=== PATIENT | female | born 1975 | race Two or more races ===

== ENCOUNTER → 2016-04-24 | Outpatient (CLI) | payer OTHER ==
--- NOTE | 2016-04-24 11:07 | MR ---
EXAMINATION TYPE: MR knee RT wo con DATE OF EXAM: 04/24/2016 10:55 AM COMPARISON: 01/08/2012 HISTORY: Rt knee pain TECHNIQUE: Multiplanar, multisequence imaging of the right knee is performed without IV contrast. FINDINGS: MEDIAL MENISCUS: Anterior and posterior horns are intact without tear. Myxoid degeneration posterior horn medial meniscus. LATERAL MENISCUS: Anterior and posterior horns are intact without tear. CRUCIATE LIGAMENTS: Chronic partial tear ACL. ACL is intact. COLLATERAL LIGAMENTS: The medial collateral ligament and lateral collateral ligament complex are inta ct and unremarkable. EXTENSOR MECHANISM: Visualized quadriceps and patellar tendons are intact. EFFUSION: No significant suprapatellar joint effusion. POPLITEAL CYST: Stable Kim's cyst. TRICOMPARTMENT SPACES: Degenerative narrowing patellofemoral joint space with early changes of chondr omalacia patella. BONE MARROW SIGNAL: No focal abnormal marrow signal is appreciated. OTHER: No additional significant abnormality is appreciated. IMPRESSION: 1. Chronic partial ACL tear. 2. 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 3. Changes of chondromalacia patella.
== END | disposition home or self-care (01) ==
LOC: RADMRIMAIN 10:21
PROVIDERS: ATTEND Orthopaedic Surgery
DX: M23.221 Derangement of posterior horn of medial meniscus due to old tear or injury, right knee (principal); M23.8X1 Other internal derangements of right knee; M22.41 Chondromalacia patellae, right knee

== ENCOUNTER → 2016-10-20 | Outpatient (CLI) | payer OTHER ==
--- NOTE | 2016-10-20 09:34 | CT ---
EXAMINATION TYPE: CT brain wo con DATE OF EXAM: 10/20/2016 COMPARISON: NONE HISTORY: Patient complains of episodes of memory loss, headache, and slurred speech. CT DLP: 1082 mGycm. Automated Exposure Control for Dose Reduction was Utilized. TECHNIQUE: CT scan of the head is performed without contrast. FINDINGS: There is no acute intracranial hemorrhage, mass effect, or midline shift identified. The ventricles and sulci are within normal limits in size. The globes are intact and the visualized sin uses are clear. IMPRESSION: No acute intracranial hemorrhage, mass effect, or midline shift is seen. The exam is unc hanged from the prior with no CT findings to correlate with the patient's symptoms.
--- NOTE | 2016-10-20 10:07 | US ---
EXAMINATION TYPE: US kidneys/renal and bladder DATE OF EXAM: 10/20/2016 COMPARISON: NONE CLINICAL HISTORY: N23 kidney pain. Flank pain and provided history of renal infections. EXAM MEASUREMENTS: Right Kidney: 11.9 x 5.0 x 5.1 cm Left Kidney: 11.8 x 5.5 x 5.2 cm Right Kidney: No hydronephrosis or discrete mass. Left Kidney: No hydronephrosis or discrete mass. Bladder: wnl Bilateral Jets seen: No There is no evidence for hydronephrosis at this point in time. No nephrolithiasis is seen. No ranjit s are identified. The urinary bladder is anechoic. Bilateral ureteral jets are seen. IMPRESSION: No evidence of hydronephrosis. Unremarkable renal ultrasound.
== END | disposition home or self-care (01) ==
LOC: RADUSMAIN 09:08
PROVIDERS: ATTEND Family Medicine
DX: R51 Headache (principal); N23 Unspecified renal colic
CPT/HCPCS: 70450; 76770

== ENCOUNTER 2017-07-23 10:14 | Day surgery (SDC) | payer OTHER ==
[2017-07-20 14:50] VITALS: BMI 32.3
[~2017-07-23 10:14] MED LIST: LACTATED RINGERS 1,000 ML IV SCH
[2017-07-23 10:48] VITALS: TEMP 97.6
[2017-07-23] MEDS ORDERED: LIDOCAINE 1% 20 ML VIAL (10MG/ML) FOR IV START INTRADERMA ONE (10:50)
[2017-07-23] MEDS ORDERED: PROPOFOL 10 MG/ML 20 ML VIAL IV ONE (11:14)
[2017-07-23] MEDS ORDERED: MIDAZOLAM 2 MG/2 ML VIAL ONE (11:14)
[2017-07-23] MEDS ORDERED: fentaNYL (PF) 50 MCG/ML 2 ML AMP ONE (11:14)
--- NOTE | 2017-07-23 11:27 | P.PCN ---
Date of Procedure: 07/23/17 Procedure(s) Performed: BRIEF HISTORY: Patient is a 42-year-old, pleasant, white female, scheduled for an upper endoscopy as a part of evaluation of intermittent dysphagia, heartburn , throat irritation for the last several months duration.. PROCEDURE PERFORMED: Esophagogastroduodenoscopy with biopsy. PREOPERATIVE DIAGNOSIS: Intermittent dysphagia to solids, throat pain, epigastric pain and heartburn. IV sedation per anesthesia. PROCEDURE: After informed consent was obtained, the patient was brought into the endoscopy unit. IV sedation was administered by Anesthesia under continuous monitoring. Initially the Olympus GIF-140 video endoscope was inserted into the mouth. Esophagus intubated without any difficulty. It was gradually advanced into the stomach and duodenum and carefully examined. The bulb and the second part of the duodenum appeared normal. The scope at this time was withdrawn to the stomach, adequately insufflated with air, and upon careful examination, mucosa of the antrum, body, had diffuse severe gastritis and multiple biopsies for H. pylori were done. The cardia and the fundus appeared normal. The scope was then withdrawn into the esophagus. The GE junction was located at 39 cm from the incisors. The esophagus appeared normal. There were no erosions or ulcerations seen and the patient tolerated the procedure well. IMPRESSION: 1. Diffuse gastritis more predominant in the antrum and distal body of the stomach status post multiple biopsies. 2. Normal-appearing esophagus with no evidence of esophagitis or esophageal stricture. RECOMMENDATIONS: The findings of this examination were discussed with the patient is a family. She was advised to follow with the biopsy results. She' ll be given a trial of Prilosec 20 mg daily to be taken in the morning before breakfast.
[2017-07-23 11:44] VITALS: BP 135/86; PULSE 69; RESP 18
== END 2017-07-23 12:30 | disposition home or self-care (01) ==
LOC: ORWHC2ENDO 10:14
PROVIDERS: ATTEND Internal Medicine Gastroenterology
DX: K29.50 Unspecified chronic gastritis without bleeding (principal); B96.81 Helicobacter pylori [H. pylori] as the cause of diseases classified elsewhere; K21.0 Gastro-esophageal reflux disease with esophagitis; F39 Unspecified mood [affective] disorder; M19.90 Unspecified osteoarthritis, unspecified site; Z72.0 Tobacco use; Z79.891 Long term (current) use of opiate analgesic; Z79.899 Other long term (current) drug therapy; Z88.1 Allergy status to other antibiotic agents
CPT/HCPCS: 81025; 88305; 43239; J2250; J3010; J2704

== ENCOUNTER → 2018-01-18 | Outpatient (CLI) | payer OTHER ==
--- NOTE | 2018-01-18 09:56 | US ---
EXAMINATION TYPE: US abdomen complete DATE OF EXAM: 01/18/2018 COMPARISON: NONE CLINICAL HISTORY: K21.9 GERD R10.9 Abdominal pain. abd pain after eating EXAM MEASUREMENTS: Liver Length: 14.6 cm Gallbladder Wall: 0.2 cm CBD: 0.6 cm Spleen: 9.7 cm Right Kidney: 11.7 x 4.3 x 4.8 cm Left Kidney: 10.8 x 5.1 x 5.9 cm Pancreas: wnl Liver: 2.3cm hypoechoic area may represent focal fatty sparring Gallbladder: wnl Evidence for sonographic Block's sign: no CBD: wnl Spleen: wnl Right Kidney: wnl Left Kidney: wnl Upper IVC: wnl Abd Aorta: wnl The intrahepatic portion of the IVC and proximal abdominal aorta are within normal limits. There is no evidence of cholelithiasis. Common bile duct is unremarkable. The visualized portions of the pa ncreas are homogenous. The spleen is unremarkable. Kidneys are symmetric and free of hydronephrosis . No renal lesions are seen. IMPRESSION: 1. Hepatic steatosis with focal fatty sparing noted.
== END | disposition home or self-care (01) ==
LOC: RADUSWWP 07:18
PROVIDERS: ATTEND Family Medicine
DX: K76.0 Fatty (change of) liver, not elsewhere classified (principal); K21.9 Gastro-esophageal reflux disease without esophagitis
CPT/HCPCS: 76700

== ENCOUNTER → 2018-10-22 | Outpatient (CLI) | payer OTHER ==
[2018-10-22 19:09] LABS: T4, Free (Free Thyroxine) 0.8 ng/dL (0.80-1.80)
== END | disposition home or self-care (01) ==
LOC: LABWHC1 10:51
PROVIDERS: ATTEND Nurse Practitioner Family
DX: G62.9 Polyneuropathy, unspecified (principal)
CPT/HCPCS: 36415; 82607; 84439; 84443; 84481

== ENCOUNTER → 2018-12-31 | Outpatient (CLI) | payer OTHER ==
[2018-12-31 19:04] LABS: Anti-Smith Ab Interp NEGATIVE (NEGATIVE); Cyclic Citrullinated Pep IgG NEGATIVE (NEGATIVE); DNA Double-Stranded NEGATIVE (NEGATIVE); Scleroderma SC-70 Ab <0.2 AI
== END | disposition home or self-care (01) ==
LOC: LABWHC1 11:27
PROVIDERS: ATTEND Nurse Practitioner Family
DX: M25.50 Pain in unspecified joint (principal)
CPT/HCPCS: 36415; 83516; 86038; 86200; 86225; 86235

== ENCOUNTER → 2019-01-03 | Outpatient (CLI) | payer OTHER ==
--- NOTE | 2019-01-04 13:56 | MM ---
Reason for exam: screening (asymptomatic). Last mammogram was performed 6 years and 11 months ago. History: Family history of breast cancer in maternal grandmother. Physical Findings: A clinical breast exam by your physician is recommended on an annual basis and results should be correlated with mammographic findings. MG Screening Mammo w CAD Bilateral CC and MLO view(s) were taken. Prior study comparison: January 22, 2012, bilateral digital screening mammo w/CAD. The breast tissue is heterogeneously dense. This may lower the sensitivity of mammography. No significant changes when compared with prior studies. ASSESSMENT: Incomplete: need additional imaging evaluation, BI-RAD 0 RECOMMENDATION: Ultrasound of the left breast. (palpable) [facility] will attempt to contact patient to return for ultrasound.
== END | disposition home or self-care (01) ==
LOC: RADMAMWWP 13:52
PROVIDERS: ATTEND Family Medicine
DX: Z12.31 Encounter for screening mammogram for malignant neoplasm of breast (principal)
CPT/HCPCS: 77067

== ENCOUNTER → 2019-01-13 | Outpatient (CLI) | payer OTHER ==
--- NOTE | 2019-01-13 09:35 | USB ---
Reason for exam: additional evaluation requested from abnormal screening. History: Family history of breast cancer in maternal grandmother. Physical Findings: Nurse did not find any significant physical abnormalities on exam. US Breast Workup Limited LT Left complete breast ultrasound includes all four quadrants, the retroareolar region and axilla. Finding demonstrates a 0.8 x 0.5 x 0.7cm mixed lesion at 1 o'clock, a 0.4 x 0.5 x 0.5cm cystic lesion at 1 o'clock and a 0.8 x 0.3 x 1.0cm lesion at the axilla tail. These results were verbally communicated with the patient and result sheet given to the patient on 01/13/19. ASSESSMENT: Probably benign, BI-RAD 3 RECOMMENDATION: Ultrasound of the left breast in 6 months.
== END | disposition home or self-care (01) ==
LOC: RADUSWWP 08:28
PROVIDERS: ATTEND Family Medicine
DX: R92.8 Other abnormal and inconclusive findings on diagnostic imaging of breast (principal)

== ENCOUNTER → 2019-04-12 | Outpatient (CLI) | payer OTHER ==
--- NOTE | 2019-04-12 20:23 | CONS ---
CONSULTATION REASON FOR CONSULTATION: Increased fatigue and sleepiness. This is a 43-year-old female patient who is coming with symptoms of loud snoring, witnessed apneas, waking up gasping for air. 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 The patient also has hypertension, well treated for now. She has gained about 40 pounds over the past one year. She has snoring with stopped breathing at night and at times she has episodes of sleep paralysis and she is able to remember some of the dreams that she is experiencing throughout the night. She is a bit anxious and panicky. No restlessness in the lower extremities. No hallucinations. No cataplexy noted. She goes to bed between 1 and 2 a.m. and she gets out of bed between 6 and 7 a.m. in the morning and she is somewhat sleep-deprived. She wakes up tired and is having issues with concentration and memory during the day. PAST MEDICAL HISTORY: HAZARDOUS MATERIALS HANDLER aneurysm, hypertension and migraines. SURGICAL HISTORY: Includes endometrial ablation. DRUG ALLERGIES: MACROBID. OUTPATIENT MEDICATION: Losartan 100, omeprazole 40, Xanax on an as-needed basis and Motrin 800 on a p.r.n. basis. FAMILY HISTORY: Negative for obstructive sleep apnea. REVIEW OF SYSTEMS: Fourteen-point review of systems was done. Positive findings were all mentioned above in the history of present illness. PHYSICAL EXAMINATION: VITAL SIGNS: BP is 120/77, pulse rate 86, respirations 16, temperature 97.9, saturation 98% on room air. Height is 5 feet 0 inches. Weight is 182. Neck size 15 inches. GENERAL APPEARANCE: Calm, comfortable. HEAD: Atraumatic, normocephalic. NECK: Supple. No JVD. No goiter or neck masses. Mallampati class IV. LUNGS: Clear to auscultation. HEART: Heart sounds are regular rate and rhythm. Normal S1, S2. No S3, S4. No murmurs. ABDOMEN: Soft, nontender. No organomegaly. EXTREMITIES: No edema. No cyanosis or clubbing. NEUROLOGIC: Awake and alert. No focal neurological deficits. IMPRESSION: 1. Chronic fatigue and hypersomnia, currently under investigation. Rule out obstructive sleep apnea. The patient is having some sleep paralysis and vivid dreams. Doubt narcolepsy at this point in time; the presentation is more typical of sleep apnea. 2. Hypertension. 3. Migraines. 4. HAZARDOUS MATERIALS HANDLER aneurysm. PLAN: 1. Weight loss. 2. Polysomnogram for screening for sleep apnea. If negative, will proceed with a second-day MSLT. 3. Extend sleep hours, as the patient has a component of insufficient sleep syndrome. I recommended sleeping at least 6-7 hours per night. 4. Will continue to follow. MMODL / IJN: [id number] /
== END | disposition home or self-care (01) ==
LOC: SLEEP 16:44
PROVIDERS: ATTEND Internal Medicine Critical Care Medicine
DX: G47.10 Hypersomnia, unspecified (principal); I10 Essential (primary) hypertension; G43.909 Migraine, unspecified, not intractable, without status migrainosus; I72.8 Aneurysm of other specified arteries; G83.89 Other specified paralytic syndromes; R53.82 Chronic fatigue, unspecified; Z79.1 Long term (current) use of non-steroidal anti-inflammatories (NSAID); Z79.899 Other long term (current) drug therapy; Z88.1 Allergy status to other antibiotic agents
CPT/HCPCS: 99211

== ENCOUNTER 2019-11-09 21:25 | Emergency (ER) | payer OTHER ==
--- NOTE | 2019-11-09 22:16 | ED ---
General Adult HPI - General Chief complaint: Headache Stated complaint: Hypertension Time Seen by Provider: 11/09/19 22:00 Source: patient Mode of arrival: wheelchair Limitations: no limitations - History of Present Illness -: hour(s) Location: head, abdomen Radiation: non-radiation Quality: aching Consistency: constant Improves with: none Worsens with: none Associated Symptoms: denies other symptoms - Related Data Home Medications Medication Instructions Recorded Confirmed ALPRAZolam [Xanax] 0.5 - 1 mg PO Q8HR PRN 07/20/17 11/09/19 Acetaminophen [Tylenol] 500 - 1,000 mg PO Q8H PRN 11/09/19 11/09/19 Losartan/Hydrochlorothiazide 1 tab PO DAILY 11/09/19 11/09/19 [Losartan-Hctz 100-12.5 mg Tab] Omeprazole 20 mg PO BID 11/09/19 11/09/19 Previous Rx's Medication Instructions Recorded cloNIDine HCL [Catapres] 0.2 mg PO Q8H PRN #15 tablet 11/10/19 Allergies Allergy/AdvReac Type Severity Reaction Status Date / Time nitrofurantoin Allergy Anaphylaxis Verified 11/09/19 22:49 [From Nallatechbid] Review of Systems ROS Statement: Those systems with pertinent positive or pertinent negative responses have been documented in the HPI. ROS Other: All systems not noted in ROS Statement are negative. Past Medical History Past Medical History: Hypertension, Neurologic Disorder Additional Past Medical History / Comment(s): HAS BEEN HAVING EPISODES OF FOOD STICKING IN THROAT. HX MIGRAINES. HAS B/P MEDS BUT DOES NOT TAKE THEM History of Any Multi-Drug Resistant Organisms: None Reported Past Surgical History: Tubal Ligation, Uterine Ablation Past Anesthesia/Blood Transfusion Reactions: No Reported Reaction Past Psychological History: Anxiety, Panic Disorder Smoking Status: Former smoker Past Alcohol Use History: Occasional Past Drug Use History: None Reported - Past Family History Mother Family Medical History: No Reported History General Exam Limitations: no limitations Course Vital Signs 11/09/19 11/09/19 11/09/19 21:27 22:07 22:59 Temperature 98.2 F Pulse Rate 89 73 Respiratory 20 18 16 Rate Blood Pressure 178/97 186/116 130/86 O2 Sat by Pulse 98 98 99 Oximetry 11/09/19 11/09/19 23:15 23:43 Temperature Pulse Rate 85 81 Respiratory 16 16 Rate Blood Pressure 118/72 113/73 O2 Sat by Pulse 98 97 Oximetry Medical Decision Making - Medical Decision Making This patient is a 44-year-old woman presenting with hypertension and a headache that she states is typical of her headaches. She is feeling better following medication here. We did have fairly detailed bedside discussion regarding her blood pressure and there is question of whether patient is having element of sleep apnea. She is encouraged to follow up for sleep study. The patient does have pre-existing appointment with cardiology and will discuss her blood pressure there. She also has appointment to have ultrasound related to the elevated transaminases levels which had been previously found as well. Discussed return parameters as well as further follow-up and care. - Lab Data Result diagrams: 11/09/19 22:26 11/09/19 22:26 Lab Results 11/09/19 11/09/19 11/09/19 Range/Units 22:26 22:26 22:26 WBC 13.5 H (3.8-10.6) k/uL RBC 4.79 (3.80-5.40) m/uL Hgb 13.2 (11.4-16.0) gm/dL Hct 40.3 (34.0-46.0) % MCV 84.1 (80.0-100.0) fL MCH 27.6 (25.0-35.0) pg MCHC 32.8 (31.0-37.0) g/dL RDW 12.3 (11.5-15.5) % Plt Count 291 (150-450) k/uL Neutrophils % 60 % Lymphocytes % 31 % Monocytes % 5 % Eosinophils % 3 % Basophils % 1 % Neutrophils # 8.0 H (1.3-7.7) k/uL Lymphocytes # 4.2 (1.0-4.8) k/uL Monocytes # 0.6 (0-1.0) k/uL Eosinophils # 0.4 (0-0.7) k/uL Basophils # 0.1 (0-0.2) k/uL Sodium 137 (137-145) mmol/L Potassium 3.9 (3.5-5.1) mmol/L Chloride 103 (98-107) mmol/L Carbon Dioxide 24 (22-30) mmol/L Anion Gap 10 mmol/L BUN 13 (7-17) mg/dL Creatinine 0.62 (0.52-1.04) mg/dL Est GFR (CKD-EPI)AfAm >90 (>60 ml/min/1.73 sqM) Est GFR (CKD-EPI)NonAf >90 (>60 ml/min/1.73 sqM) Glucose 95 (74-99) mg/dL Calcium 9.9 (8.4-10.2) mg/dL Magnesium 2.1 (1.6-2.3) mg/dL Total Bilirubin 0.4 (0.2-1.3) mg/dL AST 126 H (14-36) U/L ALT 193 H (4-34) U/L Alkaline Phosphatase 109 (38-126) U/L Troponin I <0.012 (0.000-0.034) ng/mL NT-Pro-B Natriuret Pep pg/mL Total Protein 7.9 (6.3-8.2) g/dL Albumin 4.8 (3.5-5.0) g/dL 11/09/19 Range/Units 22:26 WBC (3.8-10.6) k/uL RBC (3.80-5.40) m/uL Hgb (11.4-16.0) gm/dL Hct (34.0-46.0) % MCV (80.0-100.0) fL MCH (25.0-35.0) pg MCHC (31.0-37.0) g/dL RDW (11.5-15.5) % Plt Count (150-450) k/uL Neutrophils % % Lymphocytes % % Monocytes % % Eosinophils % % Basophils % % Neutrophils # (1.3-7.7) k/uL Lymphocytes # (1.0-4.8) k/uL Monocytes # (0-1.0) k/uL Eosinophils # (0-0.7) k/uL Basophils # (0-0.2) k/uL Sodium (137-145) mmol/L Potassium (3.5-5.1) mmol/L Chloride (98-107) mmol/L Carbon Dioxide (22-30) mmol/L Anion Gap mmol/L BUN (7-17) mg/dL Creatinine (0.52-1.04) mg/dL Est GFR (CKD-EPI)AfAm (>60 ml/min/1.73 sqM) Est GFR (CKD-EPI)NonAf (>60 ml/min/1.73 sqM) Glucose (74-99) mg/dL Calcium (8.4-10.2) mg/dL Magnesium (1.6-2.3) mg/dL Total Bilirubin (0.2-1.3) mg/dL AST (14-36) U/L ALT (4-34) U/L Alkaline Phosphatase (38-126) U/L Troponin I (0.000-0.034) ng/mL NT-Pro-B Natriuret Pep 48 pg/mL Total Protein (6.3-8.2) g/dL Albumin (3.5-5.0) g/dL - EKG Data -: EKG Interpreted by Me EKG shows normal: sinus rhythm, axis (normal), intervals (normal), QRS complexes (normal), ST-T waves (normal) Rate: normal (Rate 78 bpm) Disposition Clinical Impression: Hypertension, Elevated transaminase level Disposition: HOME SELF-CARE Condition: Good Instructions (If sedation given, give patient instructions): Hypertension (ED) Additional Instructions: As we discussed, follow with your physician to see about having a sleep study Prescriptions: cloNIDine HCL [Catapres] 0.2 mg PO Q8H PRN #15 tablet PRN Reason: Hypertension Is patient prescribed a controlled substance at d/c from ED?: No Referrals: Charles Salvador DO [Primary Care Provider] - 1-2 days
[2019-11-09] MEDS ORDERED: LORazepam 2 MG/ML INJ IV STA (22:19)
[2019-11-09 22:37] LABS: Basophils # (A) 0.1 k/uL (0-0.2); Basophils % (A) 1 %; Eosinophils # (A) 0.4 k/uL (0-0.7); Eosinophils % (A) 3 %; HCT 40.3 % (34.0-46.0); HGB 13.2 gm/dL (11.4-16.0); Lymphocytes # (A) 4.2 k/uL (1.0-4.8); Lymphocytes % (A) 31 %; MCH 27.6 pg (25.0-35.0); MCHC 32.8 g/dL (31.0-37.0); MCV 84.1 fL (80.0-100.0); Mean Platelet Volume 6.8; Monocytes # (A) 0.6 k/uL (0-1.0); Monocytes % (A) 5 %; Neutrophils % (A) 60 %; Platelet Count 291 k/uL (150-450); RBC 4.79 m/uL (3.80-5.40); RDW 12.3 % (11.5-15.5); WBC 13.5 k/uL (3.8-10.6)
[2019-11-09 22:45] LABS: ALT 193 U/L (4-34); AST 126 U/L (14-36); African American GFR (CKD) >90 (>60 ml/min/1.73 sqM); Albumin 4.8 g/dL (3.5-5.0); Alkaline Phosphatase 109 U/L (38-126); Anion Gap 10 mmol/L; Blood Urea Nitrogen 13 mg/dL (7-17); Calcium 9.9 mg/dL (8.4-10.2); Carbon Dioxide 24 mmol/L (22-30); Chloride 103 mmol/L (98-107); Glucose 95 mg/dL (74-99); Magnesium 2.1 mg/dL (1.6-2.3); Non-African American GFR(CKD) >90 (>60 ml/min/1.73 sqM); Potassium 3.9 mmol/L (3.5-5.1); Sodium 137 mmol/L (137-145); Total Bilirubin 0.4 mg/dL (0.2-1.3); Total Protein 7.9 g/dL (6.3-8.2)
[2019-11-09 23:00] VITALS: RESP 16
--- NOTE | 2019-11-09 23:00 | XR ---
EXAMINATION TYPE: XR chest 2V DATE OF EXAM: 11/09/2019 COMPARISON: NONE HISTORY: Hypertension TECHNIQUE: 2 views FINDINGS: Heart and mediastinum are normal. Lungs are clear. Diaphragm is normal. Bony thorax appears normal. There are chest leads. IMPRESSION: Normal chest.
[2019-11-10 00:17] VITALS: BP 114/74; PULSE 80; TEMP 98.1
== END 2019-11-10 00:10 | disposition home or self-care (01) ==
LOC: EC 21:25
DX: I10 Essential (primary) hypertension (principal); R74.0 Nonspecific elevation of levels of transaminase and lactic acid dehydrogenase [LDH]; F41.0 Panic disorder [episodic paroxysmal anxiety]; F41.9 Anxiety disorder, unspecified; Z79.899 Other long term (current) drug therapy; Z88.1 Allergy status to other antibiotic agents; Z87.891 Personal history of nicotine dependence
CPT/HCPCS: 83880; 80053; 83735; 84484; 85025; 71046; 99284; 96374; J2060

== ENCOUNTER → 2019-11-16 | Outpatient (CLI) | payer OTHER ==
--- NOTE | 2019-11-16 17:40 | US ---
EXAMINATION TYPE: US abdomen complete DATE OF EXAM: 11/16/2019 COMPARISON: 01/18/2018 CLINICAL HISTORY: R94.5 abnormal liver function test. elevated liver enzymes, nausea, abdominal pain EXAM MEASUREMENTS: Liver Length: 15.2 cm Gallbladder Wall: 0.3 cm CBD: 0.5 cm Spleen: 9.1 cm Right Kidney: 11.2 x 4.4 x 4.9 cm Left Kidney: 12.0 x 5.9 x 4.8 cm Technical limitations due to large amount of overlying bowel content Pancreas: Tail obscured by overlying bowel gas Liver: attenuating, hypoechoic area = 1.2 x 1.3 x 1.3cm focal sparing. Gallbladder: no evidence of stones Evidence for sonographic Block's sign: no CBD: wnl Spleen: wnl Right Kidney: no evidence of hydronephrosis Left Kidney: no evidence of hydronephrosis Upper IVC: wnl Abd Aorta: wnl IMPRESSION: 1. Ill-defined hypoechoic area adjacent to the gallbladder bed fossa present previously may be some f ocal fatty sparing. 2. No significant interval changes evident.
== END | disposition home or self-care (01) ==
LOC: RADUSWWP 07:35
PROVIDERS: ATTEND Family Medicine
DX: R94.5 Abnormal results of liver function studies (principal)
CPT/HCPCS: 76700

== ENCOUNTER 2019-11-24 23:47 | Emergency (ER) | payer OTHER ==
[2019-11-25 00:48] LABS: Basophils # (A) 0.1 k/uL (0-0.2); Basophils % (A) 1 %; Eosinophils # (A) 0.4 k/uL (0-0.7); Eosinophils % (A) 3 %; HCT 40.7 % (34.0-46.0); HGB 13.1 gm/dL (11.4-16.0); Lymphocytes # (A) 3.6 k/uL (1.0-4.8); Lymphocytes % (A) 34 %; MCHC 32.1 g/dL (31.0-37.0); MCV 84.1 fL (80.0-100.0); Mean Platelet Volume 6.5; Monocytes # (A) 0.6 k/uL (0-1.0); Monocytes % (A) 6 %; Neutrophils # (A) 5.8 k/uL (1.3-7.7); Neutrophils % (A) 55 %; Platelet Count 284 k/uL (150-450); RBC 4.85 m/uL (3.80-5.40); RDW 12.4 % (11.5-15.5); WBC 10.6 k/uL (3.8-10.6)
[2019-11-25 01:03] LABS: D-Dimer 0.35 mg/L FEU (<0.60); INR 0.9 (<1.2); Partial Thromboplastin Time 25.1 sec (22.0-30.0); Prothrombin Time 9.5 sec (9.0-12.0)
[2019-11-25 01:04] LABS: ALT 125 U/L (4-34); AST 79 U/L (14-36); African American GFR (CKD) >90 (>60 ml/min/1.73 sqM); Albumin 4.5 g/dL (3.5-5.0); Alkaline Phosphatase 126 U/L (38-126); Anion Gap 8 mmol/L; Blood Urea Nitrogen 10 mg/dL (7-17); Calcium 9.3 mg/dL (8.4-10.2); Carbon Dioxide 22 mmol/L (22-30); Chloride 106 mmol/L (98-107); Glucose 118 mg/dL (74-99); Magnesium 2.2 mg/dL (1.6-2.3); Non-African American GFR(CKD) >90 (>60 ml/min/1.73 sqM); Potassium 3.6 mmol/L (3.5-5.1); Sodium 136 mmol/L (137-145); Total Bilirubin 0.3 mg/dL (0.2-1.3); Total Protein 7.5 g/dL (6.3-8.2)
--- NOTE | 2019-11-25 01:13 | XR ---
EXAMINATION TYPE: XR chest 2V DATE OF EXAM: 11/25/2019 COMPARISON: 11/09/2019 HISTORY: Chest pain TECHNIQUE: FINDINGS: Heart and mediastinum are normal. Lungs are clear. Diaphragm is normal. Bony thorax appears normal. IMPRESSION: Normal chest. No change.
--- NOTE | 2019-11-25 01:53 | ED ---
Chest Pain HPI - General Chief Complaint: Chest Pain Stated Complaint: SOB Time Seen by Provider: 11/25/19 00:01 Source: patient Mode of arrival: ambulatory Limitations: no limitations - History of Present Illness Initial Comments: This patient is a 44-year-old woman who presents to be a value for substernal chest pain. She has been having episodes similar to this for number weeks now. Shell's episode came on at rest. It did follow eating. She states that she had taken a Xanax, because her blood pressure was up and she was also feeling anxious. The patient states that the symptoms have resolved by the time I interview her. She does note that she has followed up with the roll mill operator and they will be starting metoprolol for her, she didn't fill the prescription but has not taken it yet. In addition, the patient has had ultrasound of her gallbladder and states that she will need a follow-up HIDA scan. MD Complaint: chest pain -: hour(s) Onset: during rest Pain Location: substernal Pain Radiation: none Severity: moderate Quality: aching Consistency: now resolved Improves With: other (Xanax) Worsens With: eating Anginal Symptoms: nausea Treatments Prior to Arrival: other (Xanax) - Related Data Home Medications Medication Instructions Recorded Confirmed ALPRAZolam [Xanax] 0.5 - 1 mg PO Q8HR PRN 07/20/17 11/09/19 Acetaminophen [Tylenol] 500 - 1,000 mg PO Q8H PRN 11/09/19 11/09/19 Losartan/Hydrochlorothiazide 1 tab PO DAILY 11/09/19 11/09/19 [Losartan-Hctz 100-12.5 mg Tab] Omeprazole 20 mg PO BID 11/09/19 11/09/19 Previous Rx's Medication Instructions Recorded cloNIDine HCL [Catapres] 0.2 mg PO Q8H PRN #15 tablet 11/10/19 Allergies Allergy/AdvReac Type Severity Reaction Status Date / Time nitrofurantoin Allergy Anaphylaxis Verified 11/24/19 23:54 [From Macrobid] Review of Systems ROS Statement: Those systems with pertinent positive or pertinent negative responses have been documented in the HPI. ROS Other: All systems not noted in ROS Statement are negative. Constitutional: Denies: fever, chills Respiratory: Denies: cough, dyspnea Cardiovascular: Reports: as per HPI, chest pain. Denies: palpitations, orthopnea, edema, syncope Gastrointestinal: Reports: nausea. Denies: vomiting, diarrhea, constipation Genitourinary: Denies: dysuria, hematuria Musculoskeletal: Denies: back pain Skin: Denies: rash Neurological: Denies: headache, weakness EKG Findings - EKG Results: EKG: interpreted by VLAD BARRERA, sinus rhythm (Rate 87 bpm), normal axis, normal QRS, normal ST/T, no acute changes - [place], Pacemaker, Normal: Normal tracing: normal tracing Past Medical History Past Medical History: Hypertension, Neurologic Disorder Additional Past Medical History / Comment(s): HAS BEEN HAVING EPISODES OF FOOD STICKING IN THROAT. HX MIGRAINES. HAS B/P MEDS BUT DOES NOT TAKE THEM History of Any Multi-Drug Resistant Organisms: None Reported Past Surgical History: Tubal Ligation, Uterine Ablation Past Anesthesia/Blood Transfusion Reactions: No Reported Reaction Past Psychological History: Anxiety, Panic Disorder Smoking Status: Former smoker Past Alcohol Use History: Occasional Past Drug Use History: None Reported - Past Family History Mother Family Medical History: No Reported History General Exam Limitations: no limitations General appearance: alert, in no apparent distress Head exam: Present: atraumatic, normocephalic Eye exam: Present: normal appearance. Absent: scleral icterus, conjunctival injection Respiratory exam: Present: normal lung sounds bilaterally. Absent: respiratory distress, wheezes, rales, rhonchi, stridor Cardiovascular Exam: Present: regular rate, normal rhythm, normal heart sounds. Absent: systolic murmur, diastolic murmur, rubs, gallop GI/Abdominal exam: Present: soft, tenderness (Mild right upper quadrant tenderness without rebound or guarding). Absent: distended, guarding, rebound, rigid, mass, pulsatile mass Extremities exam: Present: normal inspection, normal capillary refill. Absent: pedal edema, calf tenderness Back exam: Present: normal inspection. Absent: CVA tenderness (R), CVA tenderness (L) Neurological exam: Present: alert Skin exam: Present: warm, dry, intact, normal color. Absent: rash Course Vital Signs 11/24/19 11/25/19 23:52 01:08 Temperature 98.1 F Pulse Rate 102 H 75 Respiratory 20 19 Rate Blood Pressure 183/99 139/96 O2 Sat by Pulse 100 97 Oximetry Disposition Clinical Impression: Chest pain, Elevated transaminase level, Hypertension Disposition: HOME SELF-CARE Condition: Good Instructions (If sedation given, give patient instructions): Chest Pain (ED) Is patient prescribed a controlled substance at d/c from ED?: No Referrals: Charles Salvador DO [Primary Care Provider] - 1-2 days
[2019-11-25 03:24] VITALS: BP 119/81; PULSE 73; RESP 18; TEMP 97.9
== END 2019-11-25 02:25 | disposition home or self-care (01) ==
LOC: EC 23:47
DX: R07.2 Precordial pain (principal); R10.11 Right upper quadrant pain; R74.0 Nonspecific elevation of levels of transaminase and lactic acid dehydrogenase [LDH]; I10 Essential (primary) hypertension; F41.9 Anxiety disorder, unspecified; Z79.899 Other long term (current) drug therapy; Z88.8 Allergy status to other drugs, medicaments and biological substances; Z87.891 Personal history of nicotine dependence
CPT/HCPCS: 36415; 71046; 80053; 83735; 84484; 85025; 85379; 85610; 85730; 93005; 99285

== ENCOUNTER → 2020-01-03 | Outpatient (CLI) | payer OTHER ==
--- NOTE | 2020-01-03 13:45 | NM ---
EXAMINATION TYPE: NM hepatobiliary w EF DATE OF EXAM: 01/03/2020 COMPARISON: NONE HISTORY: Ultrasound abdomen 11/16/2019 TECHNIQUE: After the intravenous administration of 5.1 mCi Tc 99m Mebrofenin hepatobiliary scintigrap hy is performed. Immediate images post injection. FINDINGS: There is satisfactory initial accumulation of tracer by the liver. The gallbladder is visualized wit hin 20 minutes. The small bowel activity is noted within 20 minutes. At one hour 8 ounces of oral e nsure plus is given to mimic CCK and gallbladder ejection fraction is calculated at 88 %, in the norm al range. Therefore there is no scintigraphic evidence of cystic or common bile duct obstruction, ac ninoska or chronic cholecystitis, or biliary dyskinesia. IMPRESSION: Exam is within normal limits.
== END | disposition home or self-care (01) ==
LOC: RADNMMAIN 06:56
PROVIDERS: ATTEND Family Medicine
DX: R10.84 Generalized abdominal pain (principal); R94.5 Abnormal results of liver function studies
CPT/HCPCS: 78226; A9537

== ENCOUNTER → 2020-02-08 | Outpatient (CLI) | payer OTHER ==
--- NOTE | 2020-02-08 08:15 | MM ---
Reason for exam: clinical finding. Last mammogram was performed 1 year and 1 month ago. History: Family history of breast cancer in paternal aunt and breast cancer in maternal grandmother. Indicated problem(s): lump or thickening in the left breast. Physical Findings: Nurse Summary: 0.5cm nodule in the left breast at 1 o'clock (nurse mj). MG Diagnostic Mammo w CAD [place] Bilateral CC and MLO view(s) were taken. Prior study comparison: January 03, 2019, bilateral MG screening mammo w CAD. January 22, 2012, bilateral digital screening mammo w/CAD. The breast tissue is heterogeneously dense. This may lower the sensitivity of mammography. There is no discrete abnormality including area of concern. No significant new findings when compared with previous films. These results were verbally communicated with the patient and result sheet given to the patient on 02/08/20. ASSESSMENT: Incomplete: need additional imaging evaluation, BI-RAD 0 RECOMMENDATION: Ultrasound of the left breast.
--- NOTE | 2020-02-08 08:16 | USB ---
Reason for exam: additional evaluation requested from abnormal screening. History: Family history of breast cancer in paternal aunt and breast cancer in maternal grandmother. US Breast Limited LT Left limited breast ultrasound including focal area of concern, retroareolar and axilla demonstrates a 11 x 7 x 11mm oval, cystic lesion at 1 o'clock. These results were verbally communicated with the patient and result sheet given to the patient on 02/08/20. ASSESSMENT: Benign, BI-RAD 2 RECOMMENDATION: Routine screening mammogram of both breasts in 1 year. Manage patient on a clinical basis.
== END | disposition home or self-care (01) ==
LOC: RADMAMWWP 07:01
PROVIDERS: ATTEND Family Medicine
DX: N63.10 Unspecified lump in the right breast, unspecified quadrant (principal); N63.20 Unspecified lump in the left breast, unspecified quadrant; R92.8 Other abnormal and inconclusive findings on diagnostic imaging of breast
CPT/HCPCS: 77066

== ENCOUNTER → 2020-04-05 | Outpatient (CLI) | payer OTHER ==
[2020-04-05 21:38] LABS: T4, Free (Free Thyroxine) 0.9 ng/dL (0.80-1.80)
== END | disposition home or self-care (01) ==
LOC: LABWHC1 13:18
PROVIDERS: ATTEND Internal Medicine Interventional Cardiology
DX: I10 Essential (primary) hypertension (principal); F17.200 Nicotine dependence, unspecified, uncomplicated
CPT/HCPCS: 36415; 84439; 84443

== ENCOUNTER → 2020-04-09 | Outpatient (CLI) | payer OTHER ==
[2020-04-09 10:19] LABS: Appearance,Urine Cloudy (Clear); Bacteria,Urine Rare /hpf; Bilirubin,Urine Negative (Negative); Blood,Urine Moderate (Negative); Color,Urine Yellow; Glucose,Urine (UA) Negative (Negative); HCT 41.9 % (34.0-46.0); HGB 13.9 gm/dL (11.4-16.0); Ketones,Urine Negative (Negative); Leukocyte Esterase,Urine Moderate (Negative); MCH 27.8 pg (25.0-35.0); MCHC 33.2 g/dL (31.0-37.0); MCV 83.6 fL (80.0-100.0); Mean Platelet Volume 6.5; Mucus,Urine Moderate /hpf; Nitrite,Urine Negative (Negative); Platelet Count 265 k/uL (150-450); Protein,Urine Trace (Negative); RBC 5.01 m/uL (3.80-5.40); RBC,Urine 6 /hpf (0-5); RDW 12.6 % (11.5-15.5); Specific Gravity,Urine 1.025 (1.001-1.035); Squamous Epithelial Cell,Urine 23 /hpf (0-4); Urobilinogen,Urine <2.0 mg/dL (<2.0); WBC 9.1 k/uL (3.8-10.6); WBC,Urine 3 /hpf (0-5)
[2020-04-09 15:54] LABS: African American GFR (CKD) 120.4 (60.0-200.0); Albumin 4.4 g/dL (3.80-4.90); Albumin/Globulin Ratio 1.83 (1.60-3.17); Anion Gap 7.2 mmol/L (4.00-12.00); BUN/Creat Ratio 14.29 Ratio (12.00-20.00); Calcium 9.5 mg/dL (8.7-10.3); Carbon Dioxide 28.8 mmol/L (21.6-31.8); Folate, Serum 12.2 ng/mL; Globulin 2.4 g/dL (1.6-3.3); Non-African American GFR(CKD) 103.9 (60.0-200.0); Potassium 4.2 mmol/L (3.5-5.5); Total Bilirubin 0.4 mg/dL (0.2-1.2); Total Protein 6.8 g/dL (6.2-8.2)
[2020-04-09 16:24] LABS: Erythrocyte Sedimentation Rate 8 mm/Hr (0-20)
[2020-04-09 17:31] LABS: Anti-Smith Ab Interp NEGATIVE (NEGATIVE); Cyclic Citrull Pep IgG Unit 0.9 U/mL; Cyclic Citrullinated Pep IgG NEGATIVE (NEGATIVE); DNA Double-Stranded NEGATIVE (NEGATIVE); JO-1 IgG Antibody <0.2 AI; Scleroderma SC-70 Ab <0.2 AI
[2020-04-09 17:32] LABS: C Reactive Protein 1.5 mg/dL (0.0-0.8)
[2020-04-09 18:46] LABS: Hemoglobin A1C 6.8 % (4.0-6.0)
[2020-04-10 15:16] LABS: Histone Antibody 0.6 UNITS (<1.0)
== END | disposition home or self-care (01) ==
LOC: LABWHC1 09:04
PROVIDERS: ATTEND Nurse Practitioner Family
DX: M79.7 Fibromyalgia (principal); G89.4 Chronic pain syndrome; R20.3 Hyperesthesia; M25.50 Pain in unspecified joint; Z79.899 Other long term (current) drug therapy
CPT/HCPCS: 36415; 80053; 81001; 82306; 82550; 82607; 82746; 83036; 83516; 83519; 83735; 84207; 84425; 84446; 84590; 84591; 84597; 85027; 85652; 86038; 86140; 86200; 86225; 86235

== ENCOUNTER → 2021-10-12 | Outpatient (CLI) | payer OTHER | END | disposition home or self-care (01) | LOC: LABWHC1 10:09 | PROVIDERS: ATTEND Psychiatry & Neurology Neurology | DX: E55.9 Vitamin D deficiency, unspecified (principal) | CPT/HCPCS: 36415; 82306 ==

== ENCOUNTER 2021-12-10 15:16 | Emergency (ER) | payer OTHER ==
[2021-12-10] MEDS ORDERED: ACETAMINOPHEN TAB 500 MG TAB PO STA (16:37)
[2021-12-10] MEDS ORDERED: SODIUM CHLORIDE 0.9% 1,000 ML IV STA (16:59)
[2021-12-10] MEDS ORDERED: KETOROLAC 15 MG/ML 1 ML VIAL IVP STA (16:59)
[2021-12-10] MEDS ORDERED: diphenhydrAMINE 50 MG/ML 1 ML VIAL IVP STA (16:59)
[2021-12-10] MEDS ORDERED: PROCHLORPERAZINE INJ 10 MG/2 ML VIAL IVP STA (16:59)
[2021-12-10 17:30] LABS: Basophils % (A) 0 %; Eosinophils # (A) 0.2 k/uL (0-0.7); Eosinophils % (A) 2 %; HCT 41.1 % (34.0-46.0); HGB 13.6 gm/dL (11.4-16.0); Lymphocytes % (A) 10 %; MCH 27.2 pg (25.0-35.0); MCHC 33.1 g/dL (31.0-37.0); MCV 82.4 fL (80.0-100.0); Mean Platelet Volume 6.9; Monocytes # (A) 0.7 k/uL (0-1.0); Monocytes % (A) 6 %; Neutrophils # (A) 8.3 k/uL (1.3-7.7); Neutrophils % (A) 81 %; Platelet Count 256 k/uL (150-450); RBC 4.99 m/uL (3.80-5.40); RDW 12.5 % (11.5-15.5); WBC 10.3 k/uL (3.8-10.6)
[2021-12-10 17:40] LABS: African American GFR (CKD) >90 (>60 ml/min/1.73 sqM); Anion Gap 17 mmol/L; Blood Urea Nitrogen 9 mg/dL (7-17); Calcium 9.5 mg/dL (8.4-10.2); Carbon Dioxide 20 mmol/L (22-30); Chloride 100 mmol/L (98-107); Glucose 104 mg/dL (74-99); Non-African American GFR(CKD) >90 (>60 ml/min/1.73 sqM); Potassium 3.6 mmol/L (3.5-5.1); Sodium 137 mmol/L (137-145)
[2021-12-10 17:49] LABS: Appearance,Urine Cloudy (Clear); Bilirubin,Urine Negative (Negative); Blood,Urine Large (Negative); Color,Urine Light Yellow; Glucose,Urine (UA) Negative (Negative); Ketones,Urine Negative (Negative); Leukocyte Esterase,Urine Moderate (Negative); Mucus,Urine Rare /hpf; Nitrite,Urine Negative (Negative); PH, Urine 6.5 (5.0-8.0); Protein,Urine Negative (Negative); RBC,Urine 4 /hpf (0-5); Specific Gravity,Urine 1.008 (1.001-1.035); Squamous Epithelial Cell,Urine 11 /hpf (0-4); Urobilinogen,Urine <2.0 mg/dL (<2.0); WBC,Urine 6 /hpf (0-5)
--- NOTE | 2021-12-10 18:26 | ED ---
General Adult HPI - General Chief complaint: Fever Stated complaint: Fever 104 Time Seen by Provider: 12/10/21 16:47 Source: patient, RN notes reviewed, old records reviewed Mode of arrival: ambulatory - History of Present Illness Initial comments: She is a 46-year-old male who presents emergency Department complaining of high fevers, upper respiratory symptoms, generalized body aches. She is also concerned she may have a kidney infection due to left upper back pain. States her son is been sick for the last few days. Began having symptoms this morning at 10 AM. Was not vaccinated for Covid. Is uncertain what is going on but is concerned she may have come in. Presents for further evaluation at this time. Denies any nausea, vomiting, diarrhea. Still tolerating oral intake. Is complaining of a mild generalized headache is typical for her. Denies blurry vision. Denies any weakness or numbness. Has generalized fatigue, body aches. Presents for further evaluation of this time. - Related Data Home Medications Medication Instructions Recorded Confirmed ALPRAZolam [Xanax] 0.5 - 1 mg PO Q8HR PRN 07/20/17 11/09/19 Acetaminophen [Tylenol] 500 - 1,000 mg PO Q8H PRN 11/09/19 11/09/19 Losartan/Hydrochlorothiazide 1 tab PO DAILY 11/09/19 11/09/19 [Losartan-Hctz 100-12.5 mg Tab] Omeprazole 20 mg PO BID 11/09/19 11/09/19 Previous Rx's Medication Instructions Recorded cloNIDine HCL [Catapres] 0.2 mg PO Q8H PRN #15 tablet 11/10/19 Allergies Allergy/AdvReac Type Severity Reaction Status Date / Time nitrofurantoin Allergy Anaphylaxis Verified 12/10/21 15:38 [From Macrobid] Review of Systems ROS Statement: Those systems with pertinent positive or pertinent negative responses have been documented in the HPI. Review of Systems: CONST: Endorses fever EYES: Denies blurry vision ENT: Endorses nasal congestion C/V: Denies Chest pain RESP: Denies shortness of breath GI: Denies abdominal pain : Denies dysuria SKIN: Denies rash. MSK: Endorses generalized joint pain NEURO: Endorses headache ROS Other: All systems not noted in ROS Statement are negative. Past Medical History Past Medical History: Hypertension, Neurologic Disorder Additional Past Medical History / Comment(s): HAS BEEN HAVING EPISODES OF FOOD STICKING IN THROAT. HX MIGRAINES. HAS B/P MEDS BUT DOES NOT TAKE THEM History of Any Multi-Drug Resistant Organisms: None Reported Past Surgical History: Tubal Ligation, Uterine Ablation Past Anesthesia/Blood Transfusion Reactions: No Reported Reaction Past Psychological History: Anxiety, Panic Disorder Smoking Status: Former smoker Past Alcohol Use History: Occasional Past Drug Use History: None Reported - Past Family History Mother Family Medical History: No Reported History General Exam - General Exam Comments Initial Comments: General: She is febrile. Mildly tachycardic. HEAD: Normal with no signs of head trauma. EYES: PERRLA, EOMI, conjunctiva normal, no discharge. ENT: Hearing grossly intact, normal oropharynx. RESPIRATORY: Clear breath sounds bilaterally. No wheezes, rales, or rhonchi. No hypoxia. No increased work of breathing. C/V: Sinus tachycardia. S1 and S2 auscultated, no edema, peripheral pulses 2+ and intact throughout ABD: Abd is soft, nontender, nondistended EXT: Normal range of motion, no obvious deformity SKIN: No rashes or lesions observed on exposed skin. NEURO: Alert and oriented x 4. Cranial nerves II-XII intact. No focal sensory or strength deficits. Course Vital Signs 12/10/21 15:36 Temperature 102.0 F H Pulse Rate 127 H Respiratory 18 Rate Blood Pressure 158/72 O2 Sat by Pulse 95 Oximetry Medical Decision Making - Medical Decision Making Based on the patient's presentation and physical exam, I do believe she has COVID-19 infection. Covid swab was obtained in triage and is positive. We will obtain basic laboratory studies to evaluate for abnormal kidney function this time. She was in agreement this plan. Urinalysis also be sent. Chest x-ray will be obtained. She'll be given analgesia medications and supportive therapy for headache. I did discuss with her paxlovid therapy and she declined at this time. She'll continue to use [id number] analgesic and antipyretic medications. Vital signs within normal limits other than sinus tachycardia which is likely secondary to her fever at this time. She will receive antipyretics here as well. She was in agreement this plan. Chest x-ray shows no acute cardiopulmonary process. Laboratory studies are remarkable for a positive Covid test. Urinalysis is a contaminated catch. Remainder the labs are unremarkable. On reevaluation, I updated the patient. She states her headache and joint pain are vastly improved. Headache has resolved. She expressed understanding. We discussed quarantine. We discussed obtaining a pulse oximeter. Strict return precautions were discussed. She was in agreement this plan. I instructed the patient to follow up with their PCP in the next 1-3 days. I explained that the patient should return to the emergency department if they experience any worsening symptoms. Strict return precautions were discussed with the patient. The patient expressed understanding of these instructions. I answered all questions that the patient had. The patient was discharged home in good condition with their prescriptions and follow up information. - Lab Data Result diagrams: 12/10/21 17:21 12/10/21 17:21 Lab Results 12/10/21 12/10/21 12/10/21 Range/Units 15:41 17:21 17:21 WBC 10.3 (3.8-10.6) k/uL RBC 4.99 (3.80-5.40) m/uL Hgb 13.6 (11.4-16.0) gm/dL Hct 41.1 (34.0-46.0) % MCV 82.4 (80.0-100.0) fL MCH 27.2 (25.0-35.0) pg MCHC 33.1 (31.0-37.0) g/dL RDW 12.5 (11.5-15.5) % Plt Count 256 (150-450) k/uL MPV 6.9 Neutrophils % 81 % Lymphocytes % 10 % Monocytes % 6 % Eosinophils % 2 % Basophils % 0 % Neutrophils # 8.3 H (1.3-7.7) k/uL Lymphocytes # 1.0 (1.0-4.8) k/uL Monocytes # 0.7 (0-1.0) k/uL Eosinophils # 0.2 (0-0.7) k/uL Basophils # 0.0 (0-0.2) k/uL Sodium 137 (137-145) mmol/L Potassium 3.6 (3.5-5.1) mmol/L Chloride 100 (98-107) mmol/L Carbon Dioxide 20 L (22-30) mmol/L Anion Gap 17 mmol/L BUN 9 (7-17) mg/dL Creatinine 0.61 (0.52-1.04) mg/dL Est GFR (CKD-EPI)AfAm >90 (>60 ml/min/1.73 sqM) Est GFR (CKD-EPI)NonAf >90 (>60 ml/min/1.73 sqM) Glucose 104 H (74-99) mg/dL Calcium 9.5 (8.4-10.2) mg/dL Urine Color Urine Appearance (Clear) Urine pH (5.0-8.0) Ur Specific Only (1.001-1.035) Urine Protein (Negative) Urine Glucose (UA) (Negative) Urine Ketones (Negative) Urine Blood (Negative) Urine Nitrite (Negative) Urine Bilirubin (Negative) Urine Urobilinogen (<2.0) mg/dL Ur Leukocyte Esterase (Negative) Urine RBC (0-5) /hpf Urine WBC (0-5) /hpf Ur Squamous Epith Cells (0-4) /hpf Urine Mucus (None) /hpf Coronavirus (PCR) Detected A (Not Detectd) 12/10/21 Range/Units 17:21 WBC (3.8-10.6) k/uL RBC (3.80-5.40) m/uL Hgb (11.4-16.0) gm/dL Hct (34.0-46.0) % MCV (80.0-100.0) fL MCH (25.0-35.0) pg MCHC (31.0-37.0) g/dL RDW (11.5-15.5) % Plt Count (150-450) k/uL MPV Neutrophils % % Lymphocytes % % Monocytes % % Eosinophils % % Basophils % % Neutrophils # (1.3-7.7) k/uL Lymphocytes # (1.0-4.8) k/uL Monocytes # (0-1.0) k/uL Eosinophils # (0-0.7) k/uL Basophils # (0-0.2) k/uL Sodium (137-145) mmol/L Potassium (3.5-5.1) mmol/L Chloride (98-107) mmol/L Carbon Dioxide (22-30) mmol/L Anion Gap mmol/L BUN (7-17) mg/dL Creatinine (0.52-1.04) mg/dL Est GFR (CKD-EPI)AfAm (>60 ml/min/1.73 sqM) Est GFR (CKD-EPI)NonAf (>60 ml/min/1.73 sqM) Glucose (74-99) mg/dL Calcium (8.4-10.2) mg/dL Urine Color Light Yellow Urine Appearance Cloudy H (Clear) Urine pH 6.5 (5.0-8.0) Ur Specific Only 1.008 (1.001-1.035) Urine Protein Negative (Negative) Urine Glucose (UA) Negative (Negative) Urine Ketones Negative (Negative) Urine Blood Large H (Negative) Urine Nitrite Negative (Negative) Urine Bilirubin Negative (Negative) Urine Urobilinogen <2.0 (<2.0) mg/dL Ur Leukocyte Esterase Moderate H (Negative) Urine RBC 4 (0-5) /hpf Urine WBC 6 H (0-5) /hpf Ur Squamous Epith Cells 11 H (0-4) /hpf Urine Mucus Rare H (None) /hpf Coronavirus (PCR) (Not Detectd) Disposition Clinical Impression: COVID-19 virus infection, Febrile illness Disposition: HOME SELF-CARE Condition: Good Instructions (If sedation given, give patient instructions): COVID-19 (Coronavirus Disease 2019) (ED) Additional Instructions: Quarentine until 2 days symptom free. Obtain pulse oximeter. We admit for oxygen levels less than 90% typically. Monitor for signs of dehydration. Return with any concerns. Is patient prescribed a controlled substance at d/c from ED?: No Referrals: Charles Salvador DO [Primary Care Provider] - 1-2 days Time of Disposition: 18:15
[2021-12-10 18:29] VITALS: BP 107/68; PULSE 98; RESP 20; TEMP 98
--- NOTE | 2021-12-10 18:41 | XR ---
EXAMINATION TYPE: XR chest 1V portable DATE OF EXAM: 12/10/2021 5:38 PM COMPARISON: Chest radiographs from 11/25/2019 TECHNIQUE: XR chest 1V portable Portable AP radiograph of the chest. CLINICAL INDICATION:Female, 46 years old with history of cough; FINDINGS: Lungs/Pleura: There is no evidence of pleural effusion, focal consolidation, or pneumothorax. Pulmonary vascularity: Unremarkable. Heart/mediastinum: Cardiomediastinal silhouette is unremarkable. Musculoskeletal: No acute osseous pathology. IMPRESSION: No acute cardiopulmonary disease/process.
== END 2021-12-10 18:32 | disposition home or self-care (01) ==
LOC: EC 15:16
DX: U07.1 COVID-19 (principal); I10 Essential (primary) hypertension; Z87.891 Personal history of nicotine dependence; Z88.3 Allergy status to other anti-infective agents
CPT/HCPCS: 36415; 80048; 85025; 81001; 87635; 71045; 99283; 96374; 96375; 96361; J1200; J0780; J1885; 96372

== ENCOUNTER → 2022-06-11 | Outpatient (CLI) | payer OTHER ==
--- NOTE | 2022-06-12 07:20 | MR ---
EXAMINATION TYPE: MR hip LT wo con DATE OF EXAM: 06/11/2022 COMPARISON: CT left hip without May 23, 2022. Pelvic and left hip x-ray May 21, 2022. HISTORY: LT HIP PAIN INTO LT CALF since May 21 after slip and fall injury per patient Standard multiplanar, multisequence MRI departmental protocol Multiplanar, multisequence images of the pelvis focusing on left hip were acquired without contrast. FINDINGS: Hip joint spaces are symmetric and within normal limits. Femoral head shapes are maintained bilaterally. There are small symmetric hip joint effusions presumed physiologic. There is a oval wel l-circumscribed 1.8 cm lesion of T1 hypointensity and T2 hyperintensity intertrochanteric region of r ight proximal femur corresponding to subtle lucent lesion on x-ray. This is nonspecific but favored n onaggressive in etiology. Increased fluid signal bilateral greater trochanter region consistent with insertional tendinosis is noted. No serpiginous diminished T1 signal in the left femoral head to sugg est avascular necrosis. No suspicious increased T2 signal to suggest osseous edema. Labrum appears gr ossly intact given limitation of nonarthrogram study. Muscle bulk in the bilateral thighs is symmetri c and felt within normal limits. There is no groin hernia or adenopathy seen. There is diverticula visualized portion of the sigmoid colon. There is susceptibility artifact in the bilateral pelvis presumed from tubal ligation clips. There are prominent follicles and/or thin-diego d cysts throughout the bilateral ovaries, largest on the right measures 2.8 cm axial image 27. There is uterine fibroid disease with subserosal 2.8 cm fibroid noted coronal image 1 in the fundus. IMPRESSION: Insertional greater trochanteric tendinosis bilaterally otherwise no significant finding in left hip seen to account for patient's symptoms.
== END | disposition home or self-care (01) ==
LOC: RADMRIMAIN 13:15
PROVIDERS: ATTEND Emergency Medicine
DX: S30.0XXD Contusion of lower back and pelvis, subsequent encounter (principal); S70.02XD Contusion of left hip, subsequent encounter; S23.3XXD Sprain of ligaments of thoracic spine, subsequent encounter; S43.402D Unspecified sprain of left shoulder joint, subsequent encounter; S43.401D Unspecified sprain of right shoulder joint, subsequent encounter; M67.854 Other specified disorders of tendon, left hip; M67.853 Other specified disorders of tendon, right hip; W01.0XXD Fall on same level from slipping, tripping and stumbling without subsequent striking against object, subsequent encounter

== ENCOUNTER → 2022-06-27 | Outpatient (CLI) | payer OTHER ==
--- NOTE | 2022-06-27 09:44 | XR ---
EXAMINATION TYPE: XR sacrum coccyx DATE OF EXAM: 06/27/2022 COMPARISON: NONE HISTORY: Pain Three views are submitted. Sacrum is intact. SI joints are symmetric. Coccyx appears to be intact. Visualized pelvic structures intact. Postsurgical changes in the pelvis. IMPRESSION: 1. No acute fracture.
== END | disposition home or self-care (01) ==
LOC: RADXRMAIN 09:11
PROVIDERS: ATTEND Emergency Medicine
DX: S30.0XXD Contusion of lower back and pelvis, subsequent encounter (principal)
CPT/HCPCS: 72220

== ENCOUNTER → 2022-07-02 | Outpatient (CLI) | payer OTHER ==
--- NOTE | 2022-07-02 17:12 | MR ---
EXAMINATION TYPE: MR shoulder RT wo con DATE OF EXAM: 07/02/2022 COMPARISON: X-ray 05/28/2022 HISTORY: Right shoulder pain S/P fall, decreased ROM. TECHNIQUE: Multiplanar, multisequence imaging of the right shoulder is performed without contrast. FINDINGS: There is a small amount of fluid in the subacromial subdeltoid bursa. Exam is limited by motion artif act. There is increased signal involving the insertion of the infraspinatus tendon extending a length of 1.6 cm. And appears to be compatible with severe tendinosis with intrasubstance tear. A partial t hrough thickness tear involving the posterior fibers measuring 5 mm suspected. Supraspinatus tendon demonstrates some fibrillation along the bursal surface and intrasubstance signa l compatible tendinopathy. No definite through thickness tear. Subscapularis tendon limited by motion artifact but believed to be intact. Inferior glenohumeral ligament intact. There is intrasubstance signal seen in the anterior superior l abrum near the biceps anchor suspicious for tear. Bicipital tendon is well situated within the bicipi chet groove. Hypertrophic arthropathy of the AC joint does result in mild impingement. Suprascapular notch has a n ormal appearance. IMPRESSION: 1. Exam limited by motion artifact demonstrates severe tendinopathy of the infraspinatus tendons as d iscussed above with a partial through thickness tear measuring 5 mm involving the posterior fibers. N o retraction. 2. Tendinosis and fibrillation bursal surface distal margin supraspinatus tendon. 3. A findings suspicious for anterior superior labral tear extending to the biceps anchor
== END | disposition home or self-care (01) ==
LOC: RADMRIMAIN 06:38
PROVIDERS: ATTEND Emergency Medicine
DX: S43.401D Unspecified sprain of right shoulder joint, subsequent encounter (principal); S43.402D Unspecified sprain of left shoulder joint, subsequent encounter; S23.3XXD Sprain of ligaments of thoracic spine, subsequent encounter; S30.0XXD Contusion of lower back and pelvis, subsequent encounter; S70.02XD Contusion of left hip, subsequent encounter; M67.813 Other specified disorders of tendon, right shoulder; Y99.9 Unspecified external cause status

== ENCOUNTER → 2022-08-26 | Outpatient (CLI) | payer OTHER ==
--- NOTE | 2022-08-27 06:24 | MR ---
EXAMINATION TYPE: MR shoulder LT wo con DATE OF EXAM: 08/26/2022 COMPARISON: Left shoulder x-rays May 21, 2022 HISTORY: Left shoulder pain due to fall at work. TECHNIQUE: Multiplanar, multisequence imaging of the left shoulder is performed without contrast. FINDINGS: Rotator Cuff: Distal supraspinatus and infraspinatus tendons are intact. Rotator cuff muscle bulk is preserved. Subscapularis tendon is intact. Acromioclavicular Joint: Mild narrowing and capsular hypertrophy. Type II downsloping acromion. Glenohumeral Joint: No significant effusion or spurring. Labrum: The labrum appears grossly intact given limitation of non-arthrogram study. Biceps Tendon: The long head of biceps is in normal location within bicipital groove. Bone marrow signal: A few tiny subchondral cysts involving the posterior superior lateral aspect of t he humeral head axial image 20 for reference. Other: No additional significant abnormality is appreciated. IMPRESSION: No rotator cuff or labral tear is seen. Mild degenerative changes noted as detailed above .
== END | disposition home or self-care (01) ==
LOC: RADMRIMAIN 18:57
PROVIDERS: ATTEND Emergency Medicine
DX: M19.012 Primary osteoarthritis, left shoulder (principal); S43.401D Unspecified sprain of right shoulder joint, subsequent encounter; S43.402D Unspecified sprain of left shoulder joint, subsequent encounter; S70.02XD Contusion of left hip, subsequent encounter; S30.0XXD Contusion of lower back and pelvis, subsequent encounter; S23.3XXD Sprain of ligaments of thoracic spine, subsequent encounter; X58.XXXD Exposure to other specified factors, subsequent encounter

== ENCOUNTER 2022-09-26 05:33 | Day surgery (SDC) | payer OTHER ==
[2022-09-18 16:14] VITALS: BMI 36.5
--- NOTE | 2022-09-25 08:33 | P.HPOR ---
History of Present Illness H&P Date: 09/25/22 Chief Complaint: Right shoulder pain The patient is a 47-year-old [id number] female who presents for right shoulder pain after an injury at work about 3 months ago. She slipped and fell on black ice at work. She's been having pain with attempted overhead use and at night ever since. She's tried medications along with therapy and injections without much relief. She denies significant previous problems. Review of Systems As per HPI Past Medical History Past Medical History: Hypertension, Neurologic Disorder Additional Past Medical History / Comment(s): HAS BEEN HAVING EPISODES OF FOOD STICKING IN THROAT. HX MIGRAINES. History of Any Multi-Drug Resistant Organisms: None Reported Past Surgical History: Tubal Ligation, Uterine Ablation Past Anesthesia/Blood Transfusion Reactions: No Reported Reaction Smoking Status: Former smoker - Past Family History Mother Family Medical History: No Reported History Medications and Allergies Home Medications Medication Instructions Recorded Confirmed Type ALPRAZolam [Xanax] 0.5 - 1 mg PO Q8HR PRN 07/20/17 09/18/22 History Losartan/Hydrochlorothiazide 1 tab PO DAILY 11/09/19 09/18/22 History [Losartan-Hctz 100-12.5 mg Tab] Omeprazole 20 mg PO BID 11/09/19 09/18/22 History Ibuprofen [Motrin] 600 mg PO Q8HR PRN 09/18/22 09/18/22 History Metoprolol Succinate (ER) [Toprol 25 mg PO DAILY 09/18/22 09/18/22 History Xl] Allergies Allergy/AdvReac Type Severity Reaction Status Date / Time nitrofurantoin Allergy Anaphylaxis Verified 09/18/22 15:55 [From Macrobid] Physical Examination - Shoulder right Tenderness with palpation: anterior Pain: with abduction, with forward flexion ROM: forward flexion: 140 degrees ROM: internal rotation: lower lumbar ROM: external rotation: 50 degrees Crepitus with motion: Yes Strength: abduction: 5/5 Strength: external rotation: 5/5 Tests: internal impingement tests: positive, external impingment tests: positive Results The patient is a well-developed well-nourished female approximately 4 foot 11, 195 pounds of endomorphic habitus. HEENT exam is nonfocal, neck supple. She's tender about the anterior subacromial space. Moderate subacromial crepitus is noted. Williamson and Neer sign are positive. Her distal neurovascular appears intact in the right upper shoulder. - Diagnostic results Shoulder MRI: image reviewed (MRI of the right shoulder is reviewed and shows a partial thickness tear involving the infraspinatus along with an anterior SLAP tear.) Assessment and Plan Assessment: Right rotator cuff partial thickness tear/impingement Right shoulder possible superior labral tear Plan: I talked with the patient length regarding her condition along with treatment options. She's having persistent pain and symptoms despite attempted conservative measures. After thorough discussion she opts to proceed with surgery. We'll plan proceed with arthroscopic evaluation of right shoulder with possible subacromial decompression, rotator cuff debridement versus repair, possible superior labral debridement versus biceps tenodesis. Risks and benefits were discussed at length in layman's terms turns. We will likely perform that as an outpatient procedure.
[2022-09-26] MEDS ORDERED: ONDANSETRON 4 MG/2 ML VIAL IVP ONE ×2 (05:57→09:07)
[2022-09-26] MEDS ORDERED: DEXAMETHASONE SOD PHOSPHATE 4 MG/ML 1 ML VIAL IV ONE (05:57)
[2022-09-26] MEDS ORDERED: LACTATED RINGERS 1,000 ML IV SCH (05:57)
[2022-09-26 06:16] VITALS: TEMP 97.1
[2022-09-26 06:35] LABS: Glucose,Whole Blood 110 mg/dL (70-110)
[2022-09-26] MEDS ORDERED: MIDAZOLAM 2 MG/2 ML VIAL IVP ONE (06:48)
[2022-09-26] MEDS ORDERED: fentaNYL (PF) 50 MCG/1 ML VIAL IVP ONE (06:48)
[2022-09-26] MEDS ORDERED: HYDROmorphone 0.5 MG/0.5 ML SYRINGE IVP PRN (07:00)
[2022-09-26] MEDS ORDERED: SCOPOLAMINE 1 MG/72 HR PATCH TRANSDERM ONE (07:06)
[2022-09-26] MEDS ORDERED: MIDAZOLAM 2 MG/2 ML VIAL ONE (07:19)
[2022-09-26] MEDS ORDERED: fentaNYL (PF) 50 MCG/ML 2 ML AMP ONE (07:19)
[2022-09-26] MEDS ORDERED: PROPOFOL 10 MG/ML 20 ML VIAL IV ONE (07:19)
[2022-09-26] MEDS ORDERED: ePHEDrine 50 MG/ML 1 ML VIAL ONE (07:19)
[2022-09-26] MEDS ORDERED: SUCCINYLCHOLINE CHLORIDE 200 MG/10 ML VIAL IV ONE (07:19)
[2022-09-26] MEDS ORDERED: PHENYLEPHRINE-0.9% NACL SYG 1,000 MCG/10 ML SYRINGE ONE (07:19)
[2022-09-26] MEDS ORDERED: LIDOCAINE 2% INJ 20 MG/ML (2 ML VIAL) ONE (07:19)
[2022-09-26] MEDS ORDERED: GLYCOPYRROLATE 0.2 MG/ML 2 ML VIAL ONE (07:19)
[2022-09-26] MEDS ORDERED: LIDOCAINE 4% LTA KIT (4 ML) TOPICAL ONE (07:19)
[2022-09-26] MEDS ORDERED: ROPIVACAINE 5 MG/ML 30 ML VIAL ONE (07:19)
[2022-09-26] MEDS ORDERED: EPINEPHrine (PF) 1 ML in SODIUM CHLORIDE 0.9% IRRIGATIO 3,000 ML IRRIGATION ONE ×8 (08:10)
--- NOTE | 2022-09-26 08:48 | P.OP ---
Date of Procedure: 09/26/22 Preoperative Diagnosis: Right shoulder impingement/superior labral tear/partial thickness rotator cuff tear Postoperative Diagnosis: Type II SLAP tear, partial thickness bursal surface tear infraspinatus Procedure(s) Performed: Right shoulder arthroscopic subacromial decompression/biceps tenodesis/rotator cuff debridement Implants: Arthrex 4.75 mm swivel lock anchor 1 Anesthesia: consuelo BYRD Surgeon: Wing Matamoros Lead Assistant Manager #1: Trevor Rangel Estimated Blood Loss (ml): 10 Pathology: none sent Condition: stable Disposition: PACU Indications for Procedure: The patient is a 47-year-old female presents after an injury at work with persistent right shoulder pain despite attempted conservative measures. A discussion of the risks and benefits of operative intervention versus continued conservative measures was made with patient. She opted to proceed with surgery. Operative risks to include infection, neurovascular injury, development of blood clots, possible need for subsequent procedures was discussed. Informed consent was obtained. Operative Findings: As below Description of Procedure: The patient was brought to the operating room, and after induction of general anesthesia was placed in a beachchair position. A preoperative interscalene block was placed for postoperative analgesia. I examined the right shoulder. There was no gross block to passive motion or gross glenohumeral instability. The right upper extremity was prepped and draped in normal fashion. The bony outlines the acromion, distal clavicle, and coracoid process were outlined with a skin marker. The glenohumeral joint was inflated with 50 mL of saline utilizing a spinal needle from posterior approach. A posterior portal was made through a 5 mm skin incision 1 cm medial and inferior to the posterior lateral border time. A blunt trocar was used to easily into the joint. Diagnostic arthroscopy was performed. An anterior portal was made just lateral to the coracoid process entering the joint above the subscapularis tendon. The subscapularis tendon appeared to be intact. Anterior labrum was intact. The inferior recess was inspected. The posterior labrum was intact. A type II SLAP tear was noted at the biceps anchor. It was elected to proceed with tenodesis at this point. The biceps was Short with a fiber link suture utilizing a loop intact technique. This was then released from the superior labrum and allowed to retract the bicipital groove. The appropriate starting awl was utilized for placement of a 4.75 mm swivel lock anchor. The biceps was then tenodesed to the upper portion of the bicipital groove utilizing this. Good purchase was obtained. On inspection the rotator cuff, it appeared to be intact on the articular surface. The arthroscope was then placed into the subacromial space. Marked bursitis was noted. A lateral portal was made 2 centimeters inferior to the anterior lateral border of the acromion. The soft tissue on the undersur face of the acromion was debrided with a motorized shaver and electrocautery clearly defining the anterior medial and lateral borders as well as the distal clavicle. An anterior inferior acromioplasty was performed with a motorized carina starting anterolateral, then extending this posteriorly, then extending this medially. I converted to a flat acromion and this was verified in the posterior and lateral viewing portals. The rotator cuff was inspected after bursectomy was performed. A partial thickness tear involving infraspinatus was noted involving 10% of the tendon thickness. This was debrided back to stable base with a motorized shaver. The supraspinatus and teres minor appear to be intact. The arthroscope was then removed. The portals were closed with simple 3-0 nylon sutures. A sterile dressing was applied in addition to a sling. The patient was then awoken from general anesthesia and transferred to recovery room in good condition. Blood loss was estimated at 10 mL. No complications were incurred. Sponge and needle counts were correct in the case. Trevor MORRISON assisted and the major components of the case to include arm positioning, anchor placement, and rotator cuff repair.
[2022-09-26 09:10] VITALS: RESP 16
[2022-09-26 09:55] VITALS: BP 103/68; PULSE 97
[2022-09-26] MEDS ORDERED: LACTATED RINGERS 1,000 ML IV ONE (10:09)
--- NOTE | 2022-09-26 11:33 | P.ANPRN ---
Procedure Note - Anesthesia - Nerve Block Performed Right Interscalene Single Time Out Performed: Yes ([id number]) Date of Procedure: 09/26/22 Procedure Start Time: 06:48 Procedure Stop Time: 06:53 Location of Patient: PreOp Indication: Acute Post-Operative Pain, Requested by Surgeon Specifically requested for management of pain by : Wing Maatmoros Sedation Type: Sedate with meaningful contact maintained Preparation: Sterile Prep Position: Supine Catheter: None Needle Types: Pajunk Needle Gauge: 21 Ultrasound used to visualize needle placement: Yes Ultrasound used to observe medication spread: Yes Injectate: 0.5% Ropivacaine (see comment for volume) (30cc) Blood Aspirated: No Pain Paresthesia on Injection Noted: No Resistance on Injection: Normal Image Stored and Saved: Yes Events: Uneventful and Well Tolerated
== END 2022-09-26 10:45 | disposition home or self-care (01) ==
LOC: OR 05:33
PROVIDERS: ATTEND Orthopaedic Surgery
DX: M75.111 Incomplete rotator cuff tear or rupture of right shoulder, not specified as traumatic (principal); M75.41 Impingement syndrome of right shoulder; G89.18 Other acute postprocedural pain; I10 Essential (primary) hypertension; Z87.891 Personal history of nicotine dependence; Z88.1 Allergy status to other antibiotic agents; Z79.899 Other long term (current) drug therapy
CPT/HCPCS: 29827; 29826; 64415; 81025; C1713 ×2; J2250; J0330; J1100; J0690; J2405; J0171; J3010 ×2; J2795; J2370; J2704; J2001

== ENCOUNTER → 2022-12-22 | Outpatient (CLI) | payer OTHER ==
--- NOTE | 2022-12-23 18:06 | MR ---
EXAMINATION TYPE: MR shoulder RT wo con DATE OF EXAM: 12/22/2022 COMPARISON: Right shoulder x-ray December 05, 2022. Prior right shoulder MRI July 02, 2022 HISTORY: Rt shoulder pain with difficulty raising arm overhead since injury May 21, 2022, hx of surg constantino 09/2022 TECHNIQUE: Multiplanar, multisequence imaging of the right shoulder is performed without contrast. FINDINGS: Rotator Cuff: Some increased signal in the distal supraspinatus tendon with tiny amount of adjacent f luid is less prominent from prior. Infraspinatus tendon is intact with mild increased signal along th e posterior fibers near humeral head sagittal images 19 redemonstrated. Rotator cuff muscle bulk is p reserved. Subscapularis tendon intact with some surrounding fluid. Acromioclavicular Joint: Suspect some interval partial resection of distal clavicle. There is mainten ance of underlying fat plane. Mild spurring at this level is present. Glenohumeral Joint: Small sized joint effusion is redemonstrated. No significant spurring is seen. Th ere is artifact from interval surgical change anteriorly in the humeral head noted. Labrum: Persistent increased signal superior labrum suggesting tearing. Biceps Tendon: The long head of biceps is in normal location within bicipital groove. On current stud y I cannot visualize intracapsular portion to the labral anchor suggesting tear at this level which c ould be identified intact on prior study. Bone marrow signal: No focal abnormal marrow signal is appreciated. Other: No additional significant abnormality is appreciated. IMPRESSION: 1. I suspect retracted tear of the long head of biceps tendon at the labral anchor new from prior MRI study. Correlate clinically. 2. Some tendinosis of the rotator cuff tendons redemonstrated. No significant new tearing is seen. 3. Superior labral tear redemonstrated.
== END | disposition home or self-care (01) ==
LOC: RADMRIMAIN 13:07
PROVIDERS: ATTEND Orthopaedic Surgery
DX: M67.813 Other specified disorders of tendon, right shoulder (principal); M75.101 Unspecified rotator cuff tear or rupture of right shoulder, not specified as traumatic; M24.111 Other articular cartilage disorders, right shoulder

== ENCOUNTER 2024-01-10 19:34 | Emergency (ER) | payer OTHER ==
[2024-01-10 19:55] VITALS: RESP 18
--- NOTE | 2024-01-10 20:54 | ED ---
Allergic Reaction HPI - General Source: patient Mode of arrival: ambulatory Limitations: no limitations - History of Present Illness MD Complaint: allergic reaction, hives <Shola Shen - Last Filed: 01/10/24 20:53> <Sp Alonso - Last Filed: 01/10/24 22:14> - General Chief complaint: Allergic Reaction Stated complaint: Allergic Reaction Time Seen by Provider: 01/10/24 19:50 - History of Present Illness Initial Comments: Quick note: This is a 48-year-old female presenting with allergic reaction to Macrobid x 3 days. Patient endorses full body swelling and rash following completion of Macrobid. Endorses use of Benadryl and leftover prednisone with resolution. Patient states she has since run out of prednisone and symptoms have began returning with associated wheals and urticaria. Patient endorses some possible throat swelling and trouble breathing. Patient denies fever, chills, chest pain, abdominal pain, nausea/vomiting, diarrhea, dizziness. (Shola Shen) Patient presents to the ED complaining of having an allergic reaction to Macrobid. Patient states that she was started on a course of Macrobid for a UTI by her PCP, and after being on it for 6 days, she developed diffuse pruritic urticaria. Patient states that these symptoms began 2 days ago, and she has been taking Benadryl and some leftover prednisone that she had at home. Patient states that she took 30 mg of prednisone once yesterday, as well as once today. Patient states that she has now run out of her prednisone, and she has come to the ED for another prescription of prednisone. Patient states that she had a similar reaction when being treated with Macrobid in the past. She states that her PCP has been made aware of this reaction, and she states that her PCP called in a prescription for ciprofloxacin for her, which she states she will start taking tomorrow. Patient denies tongue/lip/throat swelling, dysphagia, voice changes, dyspnea, palpitations, dizziness, any pain, fever or chills, or any other symptoms or complaints. Patient states that she last took a dose of Benadryl about 5 hours ago. (Sp Alonso) - Related Data Home Medications Medication Instructions Recorded Confirmed ALPRAZolam [Xanax] 0.5 - 1 mg PO Q8HR PRN 07/20/17 09/18/22 Losartan/Hydrochlorothiazide 1 tab PO DAILY 11/09/19 09/18/22 [Losartan-Hctz 100-12.5 mg Tab] Omeprazole 20 mg PO BID 11/09/19 09/18/22 Ibuprofen [Motrin] 600 mg PO Q8HR PRN 09/18/22 09/18/22 Metoprolol Succinate (ER) [Toprol 25 mg PO DAILY 09/18/22 09/18/22 Xl] Previous Rx's Medication Instructions Recorded HYDROcodone/APAP 7.5-325MG [[place] 1 tab PO Q6HR PRN #28 tab 09/26/22 7.5-325] predniSONE [Deltasone] 20 mg PO BID #10 tab 01/10/24 Allergies Allergy/AdvReac Type Severity Reaction Status Date / Time nitrofurantoin Allergy Anaphylaxis Verified 01/10/24 19:55 [From Macrobid] Review of Systems ROS Other: All systems not noted in ROS Statement are negative. <Shola Shen - Last Filed: 01/10/24 20:53> ROS Other: All systems not noted in ROS Statement are negative. <Sp Alonso - Last Filed: 01/10/24 22:14> ROS Statement: Those systems with pertinent positive or pertinent negative responses have been documented in the HPI. Past Medical History Past Medical History: Hypertension, Neurologic Disorder Additional Past Medical History / Comment(s): HAS BEEN HAVING EPISODES OF FOOD STICKING IN THROAT. HX MIGRAINES. HAS B/P MEDS BUT DOES NOT TAKE THEM History of Any Multi-Drug Resistant Organisms: None Reported Past Surgical History: Tubal Ligation, Uterine Ablation Past Anesthesia/Blood Transfusion Reactions: No Reported Reaction Past Psychological History: Anxiety, Panic Disorder Smoking Status: Former smoker Past Alcohol Use History: Occasional - Past Family History Mother Family Medical History: No Reported History <Shola Shen - Last Filed: 01/10/24 20:53> General Exam Limitations: no limitations <Shola Shen - Last Filed: 01/10/24 20:53> Limitations: no limitations General appearance: alert, in no apparent distress Eye exam: Present: normal appearance ENT exam: Present: mucous membranes moist, other (No evidence of oral or pharyngeal swelling or angioedema on exam) Respiratory exam: Present: normal lung sounds bilaterally. Absent: respiratory distress, wheezes, rales, rhonchi, stridor Cardiovascular Exam: Present: regular rate, normal rhythm, normal heart sounds, other (Normal radial pulses bilaterally) GI/Abdominal exam: Present: soft. Absent: tenderness, guarding Neurological exam: Present: alert, oriented X3 Skin exam: Present: other (Diffuse urticarial rash is noted to extremities and trunk) <Sp Alonso - Last Filed: 01/10/24 22:14> - General Exam Comments Initial Comments: Visual Physical Exam Vital signs reviewed General: Well-appearing, nontoxic, no acute distress. Head: Normocephalic, atraumatic Eyes: PERRLA, EOMI ENT: Airway patent Chest: Nonlabored breathing Skin: No visual rash, normal skin tone Neuro: Alert and oriented 3 Musculoskeletal: No gross abnormalities (Shola Shen) Course Vital Signs 01/10/24 19:53 Temperature 98.6 F Pulse Rate 86 Respiratory 18 Rate Blood Pressure 155/80 O2 Sat by Pulse 96 Oximetry Medical Decision Making <Shola Shen - Last Filed: 01/10/24 20:53> <Sp Alonso - Last Filed: 01/10/24 22:14> - Medical Decision Making I completed the quick note portion of this chart signed JAYDA Lincoln (Shola Shen) Was pt. sent in by a medical professional or institution (PRINCE Padilla, TEMPORARY STAFF ACCOUNTANT, urgent care, hospital, or alf...) When possible be specific @ -No Did you speak to anyone other than the patient for history (EMS, parent, family, police, friend...)? What history was obtained from this source @ -No Did you review nursing and triage notes (agree or disagree)? Why? @ -I reviewed and agree with nursing and triage notes Were old charts reviewed (outside hosp., previous admission, EMS record, old EKG, old radiological studies, urgent care reports/EKG's, alf records)? Report findings @ -No old charts were reviewed Differential Diagnosis (chest pain, altered mental status, abdominal pain women, abdominal pain men, vaginal bleeding, weakness, fever, dyspnea, syncope, headache, dizziness, GI bleed, back pain, seizure, CVA, palpatations, mental health, musculoskeletal)? @ -Rash, allergic reaction, urticaria, medication reaction, anaphylaxis, this is not a complete list. EKG interpreted by me (3pts min.). @ -None done X-rays interpreted by me (1pt min.). @ -None done CT interpreted by me (1pt min.). @ -None done U/S interpreted by me (1pt. min.). @ -None done What testing was considered but not performed or refused? (CT, X-rays, U/S, labs)? Why? @ -None What meds were considered but not given or refused? Why? @ -None Did you discuss the management of the patient with other professionals (professionals i.e. , PA, TEMPORARY STAFF ACCOUNTANT, lab, RT, psych nurse, elementary school social worker, flight engineer, teacher, aviation ordnance officer, case picker)? Give summary @ -No Was smoking cessation discussed for >3mins.? @ -No Was critical care preformed (if so, how long)? @ -No Were there social determinants of health that impacted care today? How? (Homelessness, low income, unemployed, alcoholism, drug addiction, transportation, low edu. Level, literacy, decrease access to med. care, halfway, rehab)? @ -No Was there de-escalation of care discussed even if they declined (Discuss DNR or withdrawal of care, Hospice)? DNR status @ -No What co-morbidities impacted this encounter? (DM, HTN, Smoking, COPD, CAD, Cancer, CVA, ARF, Chemo, Hep., AIDS, mental health diagnosis, sleep apnea, morbid obesity)? @ -None Was patient admitted / discharged? Hospital course, mention meds given and route, prescriptions, significant lab abnormalities, going to OR and other pertinent info. @ -Patient's symptoms and exam findings are consistent with urticarial allergic reaction, which I suspect is likely due to the Macrobid that she recently star cassidy taking. Patient has since to stop taking her Macrobid. Will continue the patient on a short course of prednisone. She was also instructed to continue taking antihistamines (as directed on the bottle) for her urticaria/allergic reaction. Patient was counseled about allergic reactions, and she was clearly explained return and follow-up instructions. She feels comfortable being discharged home at this time. Undiagnosed new problem with uncertain prognosis? @ -No Drug Therapy requiring intensive monitoring for toxicity (Heparin, Nitro, Insulin, Cardizem)? @ -No Were any procedures done? @ -No Diagnosis/symptom? @ -Allergic reaction/urticaria Acute, or Chronic, or Acute on Chronic? @ -Acute Uncomplicated (without systemic symptoms) or Complicated (systemic symptoms)? @ -Uncomplicated Side effects of treatment? @ -No Exacerbation, Progression, or Severe Exacerbation? @ -No Poses a threat to life or bodily function? How? (Chest pain, [place], [place], pneumonia, PE, COPD, DKA, ARF, appy, cholecystitis, CVA, Diverticulitis, Homicidal, Suicidal, threat to staff... and all critical care pts) @ -No (Sp Alonso) Disposition <Shola Shen - Last Filed: 01/10/24 20:53> Is patient prescribed a controlled substance at d/c from ED?: No Time of Disposition: 22:14 <Sp Alonso - Last Filed: 01/10/24 22:14> Clinical Impression: Allergic reaction, Urticaria Disposition: HOME SELF-CARE Condition: Stable Instructions (If sedation given, give patient instructions): Urticaria (ED), Allergies (ED) Additional Instructions: Return to the ER immediately should you develop tongue/lip/throat swelling, trouble breathing or swallowing, a fever, feeling dizzy or faint, shortness of breath, or new or worsening symptoms. Follow-up closely with your primary care provider. Prescriptions: predniSONE [Deltasone] 20 mg PO BID #10 tab Referrals: Charles Salvador DO [Primary Care Provider] - 1-2 days
[2024-01-10 22:53] VITALS: BP 140/87; PULSE 72; TEMP 98.7
== END 2024-01-10 22:53 | disposition home or self-care (01) ==
LOC: EC 19:34
CPT/HCPCS: 99282

== ENCOUNTER → 2024-04-13 | Outpatient (CLI) | payer OTHER ==
--- NOTE | 2024-04-13 18:06 | XR ---
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 TECHNIQUE: Three views of the right shoulder are obtained. FINDINGS: There is no acute fracture/dislocation evident in the right shoulder. The acromioclavicu lar and glenohumeral joint spaces appear within normal limits. The visualized ribs are intact and un remarkable. IMPRESSION: Unremarkable study. No significant change from prior. [facility], , 04/13/2024 6:03 PM
--- NOTE | 2024-04-13 18:07 | XR ---
EXAMINATION TYPE: XR knee complete RT DATE OF EXAM: 04/13/2024 5:59 PM COMPARISON: None. 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 FINDINGS: There is no acute fracture/dislocation evident in the right knee. Bpvk-fa-lmmckhav tricomp artment joint space loss. Mild spurring patellofemoral compartment. The overlying soft tissue appears unremarkable. IMPRESSION: There is no acute fracture or dislocation in the the right knee. [facility], , 04/13/2024 6:05 PM
--- NOTE | 2024-04-13 18:08 | XR ---
EXAMINATION TYPE: XR lumbar spine 2 or 3V DATE OF EXAM: 04/13/2024 5:59 PM COMPARISON: Lumbar spine x-ray May 21, 2022. 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 TECHNIQUE: Frontal and lateral images of the lumbar spine are obtained. FINDINGS: There are 5 lumbar type vertebral bodies redemonstrated. The lumbar spine shows satisfact ory and stable alignment without evidence of acute fracture or dislocation. Vertebral body heights an d disk space heights remain within normal limits. The overlying soft tissue appears unremarkable. IMPRESSION: No acute fracture or dislocation is seen in the lumbar spine. [facility], , 04/13/2024 6:06 PM
== END | disposition home or self-care (01) ==
LOC: RADXRMAIN 17:22
PROVIDERS: ATTEND Emergency Medicine
DX: S43.401A Unspecified sprain of right shoulder joint, initial encounter (principal); S33.5XXA Sprain of ligaments of lumbar spine, initial encounter; S80.01XA Contusion of right knee, initial encounter; X58.XXXA Exposure to other specified factors, initial encounter
CPT/HCPCS: 72100

== ENCOUNTER → 2024-04-14 | Outpatient (CLI) | payer OTHER ==
--- NOTE | 2024-04-14 11:39 | CT ---
EXAMINATION TYPE: CT cervical spine wo con DATE OF EXAM: 04/14/2024 COMPARISON: NONE HISTORY: Slip and fall x2 days ago. Sprain of the ligaments. CT DLP: 517 mGycm. Automated Exposure Control for Dose Reduction was Utilized. TECHNIQUE: CT scan of the cervical spine is obtained without contrast, axial images are obtained, sa gittal and coronal reformatted images are also reviewed. FINDINGS: Cervical spine is visualized in its entirety from C1 through upper thoracic levels, demonst rates satisfactory alignment without evidence of acute fracture or dislocation. Prevertebral soft ti ssue appears within normal limits. The C1-C2 articulation is within normal limits on the coronal lashawn ges. Vertebral body heights and disc space heights are within normal limits. Spinal canal is preserve d. Review of axial images shows some multilevel left-sided uncovertebral facet degenerative change. Thyr oid gland is felt within normal limits. Visualized lung apices are clear without pneumothorax. IMPRESSION: There is no acute fracture or dislocation evident in the cervical spine. [facility], , 04/14/2024 11:37 AM
== END | disposition home or self-care (01) ==
LOC: RADCTMAIN 11:18
PROVIDERS: ATTEND Emergency Medicine
DX: S13.4XXA Sprain of ligaments of cervical spine, initial encounter (principal); W01.0XXA Fall on same level from slipping, tripping and stumbling without subsequent striking against object, initial encounter
CPT/HCPCS: 72125

== ENCOUNTER → 2024-04-22 | Outpatient (CLI) | payer MEDICAID, OTHER ==
--- NOTE | 2024-04-24 22:02 | MR ---
EXAMINATION TYPE: MR shoulder RT wo con DATE OF EXAM: 04/22/2024 10:15 PM COMPARISON: Prior MRI right shoulder December 22, 2022. CLINICAL INDICATION: Female, 49 years old with history of S43.401D UNSPECIFIED SPRAIN OF RIGHT SHOULD ER JOIN, Right shoulder pain due to tripping and falling on right side at work. history of surgery IV Contrast: cc (None if empty) TECHNIQUE: Multiplanar, multisequence imaging of the right shoulder is performed without contrast. FINDINGS: Rotator Cuff: Persistent mild increased signal posterior fibers distal infraspinatus tendon. Mild inc reased signal on articular surface distal supraspinatus tendon. Surgically repaired rotator cuff show s no new retracted tear. Intact subscapularis tendon. Rotator cuff muscle bulk preserved. Acromioclavicular Joint: Mild capsular hypertrophy and spurring redemonstrated. Distal acromion morph ology unremarkable. Glenohumeral Joint: Small joint effusion. No significant spurring. Labrum: Less prominent but some increased signal superior labrum. Biceps Tendon: The long head of biceps is in normal location within bicipital groove. Bone marrow signal: No focal abnormal marrow signal is appreciated. Other: No additional significant abnormality is appreciated. IMPRESSION: Persistent but less prominent tendinosis of the supraspinatus and infraspinatus tendons. No new retra cted full-thickness tear. No significant new findings since most recent MRI. [facility], , 04/24/2024 9:59 PM
== END | disposition home or self-care (01) ==
LOC: RADMRIMAIN 21:45
PROVIDERS: ATTEND Emergency Medicine
DX: S43.401D Unspecified sprain of right shoulder joint, subsequent encounter (principal); S13.4XXD Sprain of ligaments of cervical spine, subsequent encounter; S33.5XXD Sprain of ligaments of lumbar spine, subsequent encounter; S80.01XD Contusion of right knee, subsequent encounter; M67.813 Other specified disorders of tendon, right shoulder; W01.0XXD Fall on same level from slipping, tripping and stumbling without subsequent striking against object, subsequent encounter

== ENCOUNTER → 2024-05-13 | Outpatient (CLI) | payer OTHER ==
--- NOTE | 2024-05-13 16:41 | FL ---
EXAMINATION TYPE: FL right shoulder fluoroscopic-guided arthrogram injection. DATE OF EXAM: 05/13/2024 4:07 PM COMPARISON: None CLINICAL INDICATION: Female, 49 years old with history of M25.511 PAIN IN RIGHT SHOULDER, patient wit h previous tenodesis for tear of the long head biceps tendon. Persistent anterior and superior should er pain which extends down the arm. PROCEDURES: 1. Right shoulder fluoroscopy. 2. Right shoulder arthrogram. TECHNIQUE: The procedure, risks, and alternatives, were discussed with the patient, who requested that vanessa cuellar The consent form was signed, and teach-back occurred. The site/side of the procedure was marked with a line with participation by the patient. The accompan govind paperwork was verified for consistency. A directed history and physical exam was performed prior to the procedure. A critical pause was perf ormed with assisting personnel just prior to the procedure, and the patient's identity was confirmed using 2 identifiers. Imaging guidance was utilized to select the precise skin entry point just prior to the procedure. The anterior right shoulder was prepped and draped in the usual sterile fashion and local 1% lidocain e anesthesia was instilled. Under fluoroscopic guidance, a 20 gauge spinal needle was introduced int o the anterior right glenohumeral joint. Appropriate needle tip position was confirmed after a small amount of contrast injection. Approximately 12 ml of a mixture of Isovue 300 iodinated contrast, sterile saline, and Gadavist was i njected into the glenohumeral joint. The needle was then removed. The patient tolerated the procedure well. A post-procedure note was placed into the medical record. There was no immediate complication. After the procedure, the patient's condition was unchanged. Estimated blood loss was minimal. Total fluoroscopy time: 13 seconds. Total images: 1. Total dose: 25 mGycm2 IMPRESSION: Technically successful right shoulder arthrogram injection for MRI. No immediate complication. Patien t counseled on routine postprocedure precautions including monitoring for signs of infection. [facility], , 05/13/2024 4:39 PM
--- NOTE | 2024-05-15 15:00 | MR ---
EXAMINATION TYPE: MR shoulder RT w con DATE OF EXAM: 05/13/2024 4:34 PM COMPARISON: 04/22/2024, 04/13/2024. Multiple prior MRIs. CLINICAL INDICATION: Female, 49 years old with history of M25.511 PAIN IN RIGHT SHOULDER; PHH, Rt carolyne ulder pain, clicking and limited movement, Hx Rt shoulder surgery, TECHNIQUE: Multi planar, multi sequence imaging was performed of the shoulder including: Axial and coronal mamadou n density fat-saturated sequences, T2 fat-saturated sagittal sequence, and T1-weighted imaging. Intr a-articular injection was performed prior to imaging. Rt shoulder pain, clicking and limited movement, Hx Rt shoulder surgery, FINDINGS: Supraspinatus tendon: Increased PD signal near its insertion. Infraspinatus tendon: Increased PD signal near its insertion. Subscapularis tendon: Intact Teres minor tendon: Intact Long head biceps tendon: Completely torn off the superior labrum with anchors in place. Acromioclavicular joint: Normal joint space and alignment. Normal subacromial space. No effusio n. Glenohumeral joint: Normal joint space and alignment. Normal articular cartilage. No effusion. Glenoid labrum: Degenerative and suspected superior labrum tear series 501 image 10. The middle g lenohumeral ligament is intact. Muscle volume: Normal. Bone marrow: [place] holding the long head of the biceps in place. Soft tissues: Unremarkable. Joint/bursal fluid: Distended with injected contrast IMPRESSION: 1. Degenerative labrum superiorly with suspected underlying tear. No displaced labral tear visualize d. The body. 2. Postsurgical changes with complete tear of the long head of the biceps off the labrum with anchors in place. Tendinosis of the anchor component of the biceps tendon. 3. Mild acromioclavicular joint arthropathy. 4. Tendinosis of the subscapularis, infraspinatus and supraspinatus tendons. [facility], , 05/15/2024 2:57 PM
== END | disposition home or self-care (01) ==
LOC: RADFLMAIN 14:52
PROVIDERS: ATTEND Orthopaedic Surgery Sports Medicine
DX: G89.28 Other chronic postprocedural pain (principal); Z98.890 Other specified postprocedural states; M25.511 Pain in right shoulder; M19.011 Primary osteoarthritis, right shoulder; M67.813 Other specified disorders of tendon, right shoulder
CPT/HCPCS: 23350; 73040; 73222; J2003; Q9967